=== PATIENT | female | born 1940 | race Caucasian/White ===

== ENCOUNTER 2023-12-27 22:41 | Emergency (ER) | payer MEDICARE ==
[~2023-12-27] VITALS: Ht 167.6 cm; Wt 69.2 kg
[2023-12-27] MEDS: ONDANSETRON 4MG 2ML VIAL IV ONE (23:17)
[2023-12-28] MEDS: NS 1,000 ML IV ONE (00:04)
[2023-12-28 00:12] LABS: INR 1.02; PARTIAL THROMBOPLASTIN TIME 28.9 SECONDS (24.8-34.2); PROTHROMBIN TIME 13.1 SECONDS (12.5-14.5)
[2023-12-28 00:16] LABS: BASO % 0.2 % (0.0-1.0); EOS # 0.2 10^3/uL (0.0-0.5); EOS % 1.2 % (0.0-3.0); HEMATOCRIT 40.6 % (36.0-47.0); HEMOGLOBIN 13.3 g/dl (12.0-15.5); LYMPH # 2.9 10^3/uL (1.5-5.0); LYMPH % 22.1 % (24.0-44.0); MEAN CORPUSCULAR HEMOGLOBIN 29.2 pg (27.0-33.0); MEAN CORPUSCULAR HGB CONC 32.8 g/dl (32.0-36.5); MONO # 0.8 10^3/uL (0.0-0.8); MONO % 6.3 % (2.0-8.0); NEUTROPHILS # 9.1 10^3/uL (1.5-8.5); NEUTROPHILS % 69.4 % (36.0-66.0); PLATELET COUNT, AUTOMATED 243 10^3/uL (150-450); RED BLOOD COUNT 4.56 10^6/uL (4.00-5.40); WHITE BLOOD COUNT 13.1 10^3/uL (4.0-10.0)
[2023-12-28 00:17] LABS: ETHYL ALCOHOL (ETHANOL) 0.035 % (0.000-0.010)
[2023-12-28 00:19] LABS: CALCIUM LEVEL 8.9 MG/DL (8.3-10.6); CREATININE FOR GFR 0.96 MG/DL (0.55-1.30); GLOMERULAR FILTRATION RATE 59.1 (>32); POTASSIUM SERUM 3.8 MMOL/L (3.5-5.1)
[2023-12-28] MEDS ORDERED: ATEN50TA2 (00:21)
[2023-12-28] MEDS ORDERED: ATOR1TAB19 (00:21)
[2023-12-28] MEDS ORDERED: LISI20TA33 (00:21)
[2023-12-28] MEDS: levETIRAcetam INJection 1,000 MG in D5W 100 ML IV ONE (00:49)
[2023-12-28] MEDS: ceFAZolin SOD 1 GM in D5W MINI-BAG PLUS 50 ML IV ONE (01:11)
[2023-12-28] MEDS: ONDANSETRON 4MG 2ML VIAL IV ONE (01:47)
[2023-12-28] MEDS: LABETALOL 100MG/20ML VIAL IV PRN (04:49)
[2023-12-28 05:12] VITALS: BP 168/74
[2023-12-28] MEDS: niCARdipine IV 40 MG in IV 1 EA IV SCH (05:47)
[2023-12-28] MEDS ORDERED: ROCURONIUM BROMIDE 50MG/5ML VIAL IV PRN (06:05)
[2023-12-28] MEDS ORDERED: MIDAZOLAM INJ 2MG/2ML VIAL IV PRN (06:05)
[2023-12-28] MEDS: ROCURONIUM BROMIDE 50MG/5ML VIAL IV ONE (06:18)
[2023-12-28] MEDS: ETOMIDATE INJ 20MG/10ML VIAL IV ONE (06:18)
[2023-12-28] MEDS: propofoL 1,000 MG in IV 1 EA IV SCH (06:21)
[2023-12-28 06:30] VITALS: BP 144/68
[2023-12-28 06:33] VITALS: TEMP 98.1
[2023-12-28 06:58] VITALS: O2SAT 100
[2023-12-28] MEDS: MORPHINE 4 MG/ML 1ML VIAL IV ONE (06:58)
== END 2023-12-28 06:33 | disposition short-term general hospital (02) ==
LOC: M ED 22:41
DX: J96.00 Acute respiratory failure, unspecified whether with hypoxia or hypercapnia (principal); S02.81XA Fracture of other specified skull and facial bones, right side, initial encounter for closed fracture; S02.119A Unspecified fracture of occiput, initial encounter for closed fracture; S06.6X1A Traumatic subarachnoid hemorrhage with loss of consciousness of 30 minutes or less, initial encounter; W19.XXXA Unspecified fall, initial encounter; Y92.89 Other specified places as the place of occurrence of the external cause; Y93.9 Activity, unspecified; Y99.9 Unspecified external cause status; I10 Essential (primary) hypertension
CPT/HCPCS: 31500; 51702; 70450; 71045; 72125; 80048; 82077; 85025; 85610; 85730; 93005; 96361; 96365; 96367; 96375; 96376; 99285; J0690; J1920; J1953; J2405